=== PATIENT | female | born 1985 | race Caucasian/White ===

== ENCOUNTER 2016-11-23 18:02 | Emergency (ER) | payer BC ==
[~2016-11-23] VITALS: Ht 160 cm; Wt 100.5 kg
[~2016-11-23 18:02] MED LIST: EXTRA STRENGTH500 M1 PO; MOTRIN800 MG PO; PERCOCET 5/31 TABLET PO; PRENATAL TABLE1 EAC3 PO; TYLENOL REGULA325 MG PO; ZANTAC150 MG PO
[2016-11-23] MEDS ORDERED: VENTOLIN HFA18 GM IH (21:58)
[2016-11-23 22:20] VITALS: BP 134/85
== END 2016-11-23 22:21 | disposition home or self-care (01) ==
LOC: RME 18:02 → EME 18:02 → RME 22:21
DX: O99.513 Diseases of the respiratory system complicating pregnancy, third trimester (principal); J20.9 Acute bronchitis, unspecified; O24.415 Gestational diabetes mellitus in pregnancy, controlled by oral hypoglycemic drugs; Z3A.34 34 weeks gestation of pregnancy
CPT/HCPCS: 71020; 93005; 94640; 99281; 99283

== ENCOUNTER 2016-12-17 12:45 | Inpatient (IN) | payer BC ==
[~2016-12-17] VITALS: Ht 157.5 cm; Wt 100.6 kg
[2016-12-17] VITALS (21 sets, daily range): BP systolic 104–147; BP diastolic 58–96
[~2016-12-17 12:45] MED LIST changes: +VENTOLIN HFA18 GM IH
[2016-12-17] MEDS ORDERED: ZANTAC150 MG PO (13:33)
[2016-12-17] MEDS ORDERED: METFORMIN HCL1000 MG PO (13:35)
[2016-12-17 15:01] LABS: EOSINOPHIL (%) 0.6 % (0-5); EOSINOPHIL COUNT 0.1 K/uL (0-0.3); IMMATURE GRANULOCYTE (%) 0.6 % (0.0-0.7); IMMATURE GRANULOCYTE COUNT 0.1 K/uL; INSTRUMENT ABS NEUTROPHIL CT 9.5 K/uL; LYMPHOCYTE COUNT 2.1 K/uL (1.0-2.8); MCHC 32.8 G/DL (30.0-36.0); MCV 82.5 FL (83-99); MEAN PLAT.VOLUME 10.3 uM^3 (9.5-12.4); MONOCYTE (%) 5.1 % (3-12); MONOCYTE COUNT 0.6 K/uL (0-0.8); NEUTROPHIL (%) 76.8 % (45-76); NEUTROPHIL COUNT 9.5 K/uL (1.8-6.4); PLATELET COUNT 278 K/uL (156-360); RBC DIS.WIDTH-SD 41.3 % (39-53); RED BLOOD COUNT 4.85 M/uL (3.80-5.20); WHITE BLOOD COUNT 12.3 K/uL (4.1-10.2)
[2016-12-18 01:46] LABS: POINT-OF-CARE METER ID UU13113692
[2016-12-18 02:56] VITALS: BP 120/73
[2016-12-18 06:23] VITALS: BP 114/59
[2016-12-18 07:42] VITALS: BP 130/76
[2016-12-18 22:31] VITALS: BP 135/67
[2016-12-19 07:22] VITALS: BP 119/65
[2016-12-19] MEDS ORDERED: MOTRIN800 MG PO (08:36)
== END 2016-12-19 14:30 | disposition home or self-care (01) | DRG 775 ==
LOC: LDRP-OP → 2WEST 12:46 → LDRP-OP 02-03 15:25
PROVIDERS: Midwife; Obstetrics & Gynecology
PROC: 10E0XZZ Delivery of Products of Conception, External Approach (ICD-10-PCS; principal; 2016-12-17)
PROC: 3E033VJ Introduction of Other Hormone into Peripheral Vein, Percutaneous Approach (ICD-10-PCS; principal; 2016-12-17)
PROC: 00HU33Z Insertion of Infusion Device into Spinal Canal, Percutaneous Approach (ICD-10-PCS; principal; 2016-12-17)
PROC: 3E0R3CZ (ICD-10-PCS; principal; 2016-12-17)
DX: O42.02 Full-term premature rupture of membranes, onset of labor within 24 hours of rupture (principal); O69.82X0 Labor and delivery complicated by other cord entanglement, without compression, not applicable or unspecified; O24.425 Gestational diabetes mellitus in childbirth, controlled by oral hypoglycemic drugs; O99.214 Obesity complicating childbirth; E66.9 Obesity, unspecified; Z68.37 Body mass index [BMI] 37.0-37.9, adult; Z3A.37 37 weeks gestation of pregnancy; Z37.0 Single live birth; Z14.8 Genetic carrier of other disease
CPT/HCPCS: 82948; 85025; C1755; J3010; J7120